=== PATIENT | female | born 1995 | race Caucasian/White ===

== ENCOUNTER 2019-05-18 12:17 | Emergency (ER) | payer BC, SELFPAY ==
[2019-05-18 12:33] VITALS: BP 122/78; PULSE 80; RESP 18; TEMP 36.2; O2SAT 100
--- NOTE | 2019-05-18 14:16 | ED.GENADULT ---
HPI - General Adult General Chief complaint: Unspecified Stated complaint: PERSISTENT RASH, KEVIN, ARM PAIN Time Seen by Provider: 05/18/19 13:56 Source: patient and RN notes reviewed Mode of arrival: ambulatory Limitations: no limitations History of Present Illness HPI narrative: Pt is a 23 y/o female presenting to the ED c/o BUE pain. Pt reports she started experiencing BUE pain that starts on her bilateral shoulders and radiates down the arms a week ago. Pt states the pain has been intermittent, noting her Sx's last about a minute in duration before resolving. Pt also reports neck pain, frontal KEVIN, nausea, diarrhea, ABD cramping, decreased PO intake of food due to diarrhea, and rash for 2 weeks, but denies vomiting, rhinorrhea, congestion, fever, visual changes, or CP. Pt states her rash on her chest and LUE has gradually worsened and notes she has been seen by her PCP for it. Pt states she had blood work drawn last Saturday and notes she has been prescribed steroids as well as a cream but has been told not to take it until she gets her blood work back. Pt states her son currently has Imepetigo and has been using the cream he was prescribed on herself to no relief on her Sx's. Onset (ago): week(s) (1) Location: upper extremity (Bilateral) Radiation: other (Down bilateral arm) Associated symptoms: headaches (Frontal), nausea/vomiting (Nausea, no vomiting), rash (Chest and LUE) and other (Neck pain; ABD pain; diarrhea; decreased PO intake of food due to diarrhea) Related Data Home Medications Medication Instructions Recorded Confirmed esomeprazole magnesium mg 05/18/19 levothyroxine 05/18/19 norethindrone-e.estradiol-iron [Lo tablet 05/18/19 Loestrin Fe] Allergies Allergy/AdvReac Type Severity Reaction Status Date / Time Penicillins Allergy Unknown Vomiting Verified 05/18/19 13:45 Review of Systems Review of Systems: All systems reviewed & are unremarkable except as noted in HPI and below Constitutional: Constitutional: Reports fever(s) and Reports other (Decreased PO intake of food due to diarrhea) Eyes: Eyes: Denies change in vision ENT: Denies nasal congestion and Denies other (Rhinorrhea) Cardiovascular: Cardiovascular: Denies chest pain Gastrointestinal: Gastrointestinal: Reports abdominal pain, Reports diarrhea, Reports nausea and Denies vomiting Musculoskeletal: Musculoskeletal: Reports neck pain and Reports other (Bilateral shoulder pain radiating down arms) Integumentary/Breasts: Skin/Breast: Reports rash (chest and LUE) Neurologic: Reports headache(s) (Frontal) PMFSH Past Medical History Medical History Acid reflux Depression Thyroid disease Surgical History Surgical History History of tonsillectomy Family History Family History Grandparent Family history of congestive heart failure Social History Social History Social History: Smoking status: Light tobacco smoker Tobacco type: cigarettes Second hand tobacco smoke exposure: Yes Alcohol intake: never Substance use: never Substance use type: does not use Gender identity (if verbalized by the patient): Female Exam Narrative: Exam Narrative: GENERAL: Well-appearing, well-nourished, and in no acute distress. HEAD: Normocephalic, atraumatic EYES: PERRLA and EOMI, conjunctiva clear without discharge EARS: TM's clear bilaterally without erythema or dullness NOSE: Nares clear, no rhinorrhea or epistaxis THROAT:Mucous membranes moist, Oropharynx normal without erythema, exudate, peritonsillar swelling or fluctuance NECK: Supple, without lymphadenopathy or mass RESPIRATORY: No respiratory distress, Airway patent, Respirations non-labored, Clear to auscultation without rales, rhonchi or wheeze HEART: Regular rate and rhythm. No murmur hear
[2019-05-18] MEDS: LACTATED RINGERS 1,000 ML 999 ML IV CONT (14:41)
[2019-05-18] MEDS: METOCLOPRAMIDE HCL INJ 10 MG/2 ML VIAL IV PUSH (14:41)
[2019-05-18 15:15] LABS: Basophils Absolute Auto 0.1 K/mm3 (0.0-0.1); Basophils Percent Auto 0.9 % (0.2-1.2); Eosinophils Absolute Auto 0.2 K/mm3 (0-0.3); Eosinophils Percent Auto 3.4 % (0-4.4); Hematocrit 31.8 % (37.0-47.0); Hemoglobin 9.9 g/dL (12.0-15.0); Immature Granulocyte Absolute 0.01 K/mm3 (0.00-0.031); Immature Granulocyte Percent A 0.2 % (0-0.5); Lymphocytes Percent Auto 42.5 % (18.3-44.2); Mean Corpuscular HGB Conc 31.1 g/dl (32-36); Mean Corpuscular Hemoglobin 24.9 pg (26-34); Mean Corpuscular Volume 79.9 fl (80-100); Mean Platelet Volume 11.1 fl (7.4-10.4); Monocytes Absolute Auto 0.3 K/mm3 (0.1-0.6); Monocytes Percent Auto 4.9 % (2.6-8.5); Neutrophils Absolute Auto 2.8 K/mm3 (1.3-6.7); Neutrophils Percent Auto 48.1 % (45.5-73.1); Platelet Count Result 249 k/mm3 (150-375); Red Blood Count 3.98 M/mm3 (4.2-5.4); Red Cell Distribution Width 16.4 % (11.5-14.5); White Blood Count 5.9 K/mm3 (4.5-10.0)
[2019-05-18 15:24] LABS: Prothrombin Time 12.6 Seconds (11.1-14.7)
[2019-05-18 15:25] LABS: Partial Thromboplastin Time 29.6 SECONDS (22.3-36.8)
[2019-05-18 15:26] LABS: Creatine Kinase 61 U/L (30-135)
[2019-05-18 15:28] LABS: Alanine Aminotransferase 22 U/L (4-35); Albumin Level 3.8 g/dL (3.5-5.1); Alkaline Phosphatase 78 U/L (38-126); Aspartate Amino Transferase 25 U/L (14-36); Bilirubin,Total < 0.1 mg/dL (0.2-1.3); Blood Urea Nitrogen 11 mg/dL (7-17); Calcium 8.6 mg/dL (8.4-10.2); Carbon Dioxide 24 mmol/L (22-30); Chloride 103 mmol/L (98-107); Estimated CRCL calculation 138 ml/min; Estimated Glomerular Filt Rate > 60; Glucose 106 mg/dL (65-105); Magnesium 1.9 mg/dL (1.6-2.3); Potassium 3.7 mmol/L (3.4-5.0); Sodium 141 mmol/L (137-145)
--- NOTE | 2019-05-18 16:35 | ECG_ITS ---
Measurements Intervals [place] Rate: 47 P: 7 NE: 134 QRS: 18 QRSD: 93 T: 25 QT: 431 QTc: 385 Interpretive Statements SINUS BRADYCARDIA ABNORMAL ECG Electronically Signed On 05-18-2019 17:55:36 LEAD PERFORMANCE SUPPORT ANALYST by Juve James D.O.
[2019-05-18 17:00] VITALS: RESP 16
== END 2019-05-18 17:08 | disposition home or self-care (01) ==
PROVIDERS: Emergency Provider General Practice; PCP Family Medicine
DX: G44.209 Tension-type headache, unspecified, not intractable (principal); R00.1 Bradycardia, unspecified; F17.210 Nicotine dependence, cigarettes, uncomplicated; F32.9 Major depressive disorder, single episode, unspecified
CPT/HCPCS: 36415; 80053; 81025; 82550; 83735; 85025; 85610; 85730; 93005; 96361; 96374; 96375; 99284; J1200; J2765; J7120

== ENCOUNTER 2023-10-15 09:44 | Outpatient (CLI) | payer OTHER, SELFPAY ==
[2023-10-15 10:19] LABS: Basophils Absolute Auto 0.1 K/mm3 (0.0-0.1); Basophils Percent Auto 0.8 % (0.2-1.2); Eosinophils Absolute Auto 0.1 K/mm3 (0-0.3); Hematocrit 36.8 % (37.0-47.0); Hemoglobin 11.7 g/dL (12.0-15.0); Immature Granulocyte Absolute 0.01 K/mm3 (0.00-0.031); Immature Granulocyte Percent A 0.2 % (0-0.5); Lymphocytes Absolute Auto 2.25 K/mm3 (0.9-3.2); Lymphocytes Percent Auto 35.2 % (18.3-44.2); Mean Corpuscular HGB Conc 31.8 g/dl (32-36); Mean Corpuscular Hemoglobin 26.1 pg (26-34); Mean Corpuscular Volume 82.1 fl (80-100); Mean Platelet Volume 10.3 fl (7.4-10.4); Monocytes Absolute Auto 0.4 K/mm3 (0.1-0.6); Monocytes Percent Auto 5.5 % (2.6-8.5); Neutrophils Absolute Auto 3.6 K/mm3 (1.3-6.7); Neutrophils Percent Auto 56.3 % (45.5-73.1); Platelet Count Result 293 k/mm3 (150-375); Red Blood Count 4.48 M/mm3 (4.2-5.4); Red Cell Distribution Width 18.6 % (11.5-14.5); White Blood Count 6.4 K/mm3 (4.5-10.0)
[2023-10-15 10:52] LABS: Erythrocyte Sedimentation Rate 18 mm/hr (0-20)
[2023-10-15 10:53] LABS: Hemoglobin A1C 5.4 % (<5.7)
[2023-10-15 10:56] LABS: Alanine Aminotransferase 22 U/L (6-35); Albumin Level 4.9 g/dL (3.5-5.1); Alkaline Phosphatase 63 U/L (38-126); Anion Gap 9 mmol/L (4-12); Aspartate Amino Transferase 31 U/L (14-36); Bilirubin,Total 0.6 mg/dL (0.2-1.3); Blood Urea Nitrogen 15 mg/dL (7-17); CRP < 0.5 mg/dL (<1.0); Calcium 9.3 mg/dL (8.4-10.2); Carbon Dioxide 22 mmol/L (22-30); Chloride 105 mmol/L (98-107); Cholesterol 325 mg/dL (0-200); Estimated Glomerular Filt Rate > 60; Glucose 92 mg/dL (65-110); HDL Direct 60 mg/dL; Potassium 4.6 mmol/L (3.4-5.0); Sodium 136 mmol/L (137-145); Triglycerides 151 mg/dL (<150)
[2023-10-15 11:05] LABS: LDL Cholesterol Direct 207 mg/dL
== END 2023-10-15 09:45 | disposition home or self-care (01) ==
LOC: ANHLAB 09:49
PROVIDERS: PCP Family Medicine; Visit Provider Family Medicine
DX: R53.82 Chronic fatigue, unspecified (principal); I10 Essential (primary) hypertension; R73.09 Other abnormal glucose; E78.2 Mixed hyperlipidemia
CPT/HCPCS: 36415; 80053; 80061; 83036; 84443; 85025; 85652; 86140

== ENCOUNTER 2023-10-22 13:01 | Emergency (ER) | payer OTHER, SELFPAY ==
--- NOTE | ~2023-10-22 | XR_ITS ---
XR chest 1V portable Ordering provider: Darin Dillon PA-C History: 28 years Female with . near syncope . Comparison: None. FINDINGS: MEDIASTINUM: The cardiac silhouette is not enlarged. LUNGS: No infiltrates, effusions or pneumothorax. OTHER: No free air under the diaphragm. IMPRESSION: No acute cardiopulmonary pathology. Reviewed, dictated and finalized at location A.
[2023-10-22 13:15] VITALS: BP 139/87; PULSE 77; RESP 16; TEMP 36.2; O2SAT 100
[2023-10-22 15:22] VITALS: BP 124/71; PULSE 59
[2023-10-22 15:24] VITALS: BP 126/80; PULSE 60
[2023-10-22 15:25] VITALS: BP 128/79; PULSE 66
--- NOTE | 2023-10-22 15:39 | ED.DIZZY ---
HPI - Dizziness General Chief Complaint: Dizziness Stated Complaint: h/a, dizzy, sob Time Seen by Provider: 10/22/23 15:21 Source: patient Mode of arrival: ambulatory Limitations: no limitations History of Present Illness HPI Narrative: this is a 28-year-old female With PMH of anemia, thyroid disease who presents to the ED with chief complaint of dizziness, lightheadedness intermittent for the past couple weeks. Endorses intermittent nausea as well but no vomiting. States that she was seen by her PCP recently for similar symptoms. They noted that her blood pressure was high. states that she was started on furosemide a few days ago. reports today she was a little more concerned because she has been having some shortness of breath. she did have a headache that has since resolved. States the symptoms are made worse with certain positions and with standing up or sitting down rapidly. denies numbness, weakness, syncope, speech change, vision change. Does endorse history of blood clot in the past but does not currently take any blood thinners Related Data Allergies Allergy/AdvReac Type Severity Reaction Status Date / Time Penicillins Allergy Unknown Vomiting Verified 10/22/23 15:49 Review of Systems Review of Systems: All systems as dictated in HPI [facility] Past Medical History Medical History Acid reflux Acute bronchitis Cervical smear, as part of routine gynecological examination Depression Dizziness Hypothyroidism (acquired) Hypovitaminosis D Infected incision Infectious diarrhea in adult patient Pruritic urticarial papules and plaques of , antepartum Thyroid disease Vaginal delivery Vaginal discharge Vulvovaginal discomfort Withdrawal complaint Surgical History Surgical History H/O breast augmentation History of elective History of tonsillectomy Family History Family History Grandparent Family history of congestive heart failure Social History Social History (Updated 10/15/23 @ 08:30 by Roberta Angelo) Social History: Smoking packs per day: 0.5 Smoking cigarettes per day: 10.0 Years smoked: 5 Smoking pack-years: 2.50 Smoking status: Current every day smoker Tobacco type: cigarettes Second hand tobacco smoke exposure: Yes Alcohol intake: current Alcohol use details: Occasionally Substance use: never Substance use type: does not use Do You Feel Safe in your Home?: Yes Lack of Transportation: No Lack of Food: Never True Current Housing: I Have Housing Concerned About Future Housing: No Difficulty Paying Gas/Electric Bills: No Difficulty Paying for Meds: No Currently Unemployed: No Education: Decline to Answer Difficulty w/ Childcare or Family Care: No Living arrangements: with family Occupation/Education: occupation 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 Gender identity (if verbalized by the patient): Female Sexual Orientation (if Verbalized by the Patient): Straight or Heterosexual Exam Narrative: GENERAL: Well-appearing, well-nourished, and in no acute distress. HEAD: Normocephalic, atraumatic. EYES: PERRLA and EOMI. ENT: Nares clear, no rhinorrhea or epistaxis. Mucous membranes moist. Oropharynx without tonsillar hypertrophy exudate or other lesions. NECK: Supple. No adenopathy or masses. CHEST: No respiratory distress. Clear to auscultation. No wheezes rales or rhonchi HEART: Regular rate and rhythm. No murmur heard. Normal peripheral pulses. ABDOMEN: Soft, nontender, nondistended, normal active bowel sounds. MSK: Normal range of motion. No edema. SKIN: Warm, dry, no rash. NEURO: Alert and oriented x4. No focal deficits. no nystagmus. PSYCH: Normal mood and affect. Course Vital Signs Vital signs: Vital Signs
[2023-10-22 15:45] VITALS: BP 132/87; PULSE 56; RESP 15; O2SAT 100
--- NOTE | 2023-10-22 15:47 | ECG_ITS ---
Test Date: 2023-10-22 15:56:08 Measurements Intervals [place] Rate: 51 P: 2 DC: 141 QRS: 7 QRSD: 94 T: 15 QT: 404 QTc: 372 Interpretive Statements SINUS BRADYCARDIA VOLTAGE CRITERIA FOR LVH BASELINE ARTIFACT- AVR, AVL, AVF BORDERLINE ECG No previous ECG available for comparison Electronically Signed On 10-22-2023 16:00:01 CDT by Juve James D.O.
[2023-10-22] MEDS: SODIUM CHLORIDE 0.9% IV 1,000 ML 999 ML IV CONT (16:10)
[2023-10-22] MEDS: MECLIZINE HCL 25 MG TABLET PO (16:11)
[2023-10-22] MEDS: ONDANSETRON INJ 4 MG/2 ML VIAL IV PUSH (16:11)
[2023-10-22 16:20] LABS: Basophils Absolute Auto 0.1 K/mm3 (0.0-0.1); Basophils Percent Auto 0.7 % (0.2-1.2); Eosinophils Absolute Auto 0.1 K/mm3 (0-0.3); Eosinophils Percent Auto 1.4 % (0-4.4); Hematocrit 34.7 % (37.0-47.0); Immature Granulocyte Absolute 0.03 K/mm3 (0.00-0.031); Immature Granulocyte Percent A 0.3 % (0-0.5); Lymphocytes Absolute Auto 2.99 K/mm3 (0.9-3.2); Lymphocytes Percent Auto 34.6 % (18.3-44.2); Mean Corpuscular HGB Conc 31.7 g/dl (32-36); Mean Corpuscular Hemoglobin 26.2 pg (26-34); Mean Corpuscular Volume 82.6 fl (80-100); Mean Platelet Volume 10.1 fl (7.4-10.4); Monocytes Absolute Auto 0.3 K/mm3 (0.1-0.6); Monocytes Percent Auto 3.9 % (2.6-8.5); Neutrophils Absolute Auto 5.1 K/mm3 (1.3-6.7); Neutrophils Percent Auto 59.1 % (45.5-73.1); Platelet Count Result 308 k/mm3 (150-375); Red Cell Distribution Width 19.1 % (11.5-14.5); White Blood Count 8.7 K/mm3 (4.5-10.0)
[2023-10-22 16:23] LABS: Appearance Urine Clear (Clear); Bilirubin Urine Negative (Negative); Blood Urine Negative (Negative); Color Urine Yellow (Yellow); Glucose Urine UA Negative (Negative); Ketones Urine Trace mg/dL (Negative); Leukocyte Esterase Ur Negative LEU/UL (Negative); Nitrate Urine Negative (Negative); Protein Urine Negative (Negative); Urobilinogen Urine 0.2 mg/dL (<2.0); pH Urine 5.5 (5.0-9.0)
[2023-10-22 16:27] LABS: Add Urine Microscopic? NO
[2023-10-22 16:32] LABS: Alanine Aminotransferase 17 U/L (6-35); Albumin Level 4.6 g/dL (3.5-5.1); Alkaline Phosphatase 70 U/L (38-126); Anion Gap 10 mmol/L (4-12); Aspartate Amino Transferase 25 U/L (14-36); Bilirubin,Total 0.2 mg/dL (0.2-1.3); Blood Urea Nitrogen 10 mg/dL (7-17); Calcium 9.2 mg/dL (8.4-10.2); Carbon Dioxide 25 mmol/L (22-30); Chloride 102 mmol/L (98-107); Estimated CRCL calculation 148 ml/min; Estimated Glomerular Filt Rate > 60; Glucose 86 mg/dL (65-110); Potassium 3.7 mmol/L (3.4-5.0); Sodium 137 mmol/L (137-145)
[2023-10-22 16:44] LABS: NT Pro B Type Natriuretic Pept < 20 pg/mL (19.9-100); Troponin I < 0.012 ng/mL (0.000-0.034)
[2023-10-22 16:47] LABS: D Dimer < 0.27 ug/mL (<0.48)
== END 2023-10-22 17:45 | disposition home or self-care (01) ==
PROVIDERS: Emergency Provider Physician Assistant; PCP Family Medicine
DX: R42 Dizziness and giddiness (principal); R00.1 Bradycardia, unspecified; F17.210 Nicotine dependence, cigarettes, uncomplicated; F32.A Depression, unspecified; E03.9 Hypothyroidism, unspecified
CPT/HCPCS: 36415; 71045; 80053; 81003; 81025; 83880; 84484; 85025; 85380; 93005; 96361; 96374; 99284; A9270; J2405; J7030

== ENCOUNTER 2023-11-19 08:30 | Outpatient (CLI) | payer OTHER, SELFPAY ==
--- NOTE | ~2023-11-19 | CT_ITS ---
CT brain & sinus wo con Ordering provider: Hannah Todd MD History: 28 years Female with . R42 - Dizziness and giddiness . Comparison: None. Technique: CT of the head without contrast. Radiation reduction technique utilized. DLP is 3. The dose-length product was 756.67 mGy-cm FINDINGS: BRAIN PARENCHYMA AND CSF SPACES: No midline shift, mass effect or hemorrhage. The brain parenchyma a nd CSF spaces are otherwise normal. BONES: The bones appear intact. SOFT TISSUES: Visualized nasopharynx is normal. Superficial soft tissues are normal. IMPRESSION: No acute intracranial findings. CT brain & sinus wo con Ordering provider: Hannah Todd MD History: . R42 - Dizziness and giddiness . Comparison: None. Technique: Thin slice Scans CT of the paranasal sinuses was performed with coronal and sagittal refor matted images. No IV contrast. . Automated exposure control and iterative reconstruction technique w ere employed. The dose-length product was 756.67 mGy-cm. Findings: NASAL SEPTUM: midline. OSTEOMEATAL UNITS: Bilaterally patent. NASAL TURBINATES AND NASOPHARYNX: Normal. PARANASAL SINUSES: Well aerated. VISUALIZED MASTOIDS: Normal as visualized. BONES: Normal. SUPERFICIAL SOFT TISSUES/VISUALIZED BRAIN PARENCHYMA: Normal. IMPRESSION: No acute abnormality seen. Reviewed, dictated and finalized at location A. IMPRESSION: No acute intracranial findings. CT brain & sinus wo con Ordering provider: Hannah Todd MD History: . R42 - Dizziness and giddiness . Comparison: None. Technique: Thin slice Scans CT of the paranasal sinuses was performed with alex nal and sagittal reformatted images. No IV contrast. . Automated exposure cont rol and iterative reconstruction technique were employed. The dose-length produ ct was 756.67 mGy-cm. Findings: NASAL SEPTUM: midline. OSTEOMEATAL UNITS: Bilaterally patent. NASAL TURBINATES AND NASOPHARYNX: Normal. PARANASAL SINUSES: Well aerated. VISUALIZED MASTOIDS: Normal as visualized. BONES: Normal. SUPERFICIAL SOFT TISSUES/VISUALIZED BRAIN PARENCHYMA: Normal. IMPRESSION: No acute abnormality seen.
== END 2023-11-19 08:31 | disposition home or self-care (01) ==
LOC: ANHIMG 08:33
PROVIDERS: PCP Family Medicine; Visit Provider Family Medicine
DX: I49.9 Cardiac arrhythmia, unspecified (principal); R42 Dizziness and giddiness; R51.9 Headache, unspecified
CPT/HCPCS: 70450; 70486

== ENCOUNTER 2023-12-04 09:58 | Outpatient (CLI) | payer OTHER, SELFPAY ==
--- NOTE | 2023-12-09 11:23 | WPDHOLTEREM ---
Holter/Event Monitor Holter/Event Monitor Date of procedure: 12/04/23 Holter/Event Procedure: 48 Hr Holter Monitor Indications: Cardiac arrhythmia Conclusion: 1. 48 hour holter monitor on 12/04/23. 2. Underlying rhythm is sinus rhythm. HR range 43-158 bpm; average HR 76 bpm. HR rate 43 bpm at 05:20. HR at 158 bpm at 13:14. 3. No premature supraventricular complexes. No supraventricular tachycardia. 4. No premature ventricular complexes. No ventricular tachycardia. 5. No sinoatrial or atrioventricular blocks. No significant pauses greater than 2 seconds. 6. Patient reports symptoms of shortness of breath, dizziness, lightheadedness, fluttering which demonstrate sinus rhythm, HR range 57-88 bpm.
== END 2023-12-04 09:59 | disposition home or self-care (01) ==
PROVIDERS: PCP Family Medicine; Visit Provider Family Medicine
DX: I49.9 Cardiac arrhythmia, unspecified (principal); R42 Dizziness and giddiness
CPT/HCPCS: 93225; 93226

== ENCOUNTER 2023-12-16 02:04 | Day surgery (SDC) | payer OTHER, SELFPAY ==
[2023-11-29 08:56] VITALS: BMI 30.7
[2023-12-16 10:39] VITALS: BP 122/82; PULSE 64; RESP 18; TEMP 36.2; O2SAT 100; BMI 30.1
--- NOTE | 2023-12-16 10:49 | WPDANESEPPF ---
Anes - Initial Pre Proc Eval Procedure: Operation Date: 12/16/23 11:30 Proposed Procedures p Esophagogastroduodenoscopy - Americo Davis MD Date/Time: 12/16/23 10:49 Surgeon: Americo Davis MD Pre Op Diagnosis: epigastric pain, nausea Patient Data Age: 28 Gender: F Height: 1.8 m Weight: 98 kg Last Vital Signs Temp 97.1 F L 12/16/23 10:39 Pulse 64 12/16/23 10:39 Resp 18 12/16/23 10:39 BP 122/82 12/16/23 10:39 Pulse Ox 100 12/16/23 10:39 O2 Del Method Room Air 12/16/23 10:39 Allergies Allergy/AdvReac Type Severity Reaction Status Date / Time Penicillins AdvReac Unknown Vomiting Verified 12/16/23 10:36 Home Medications Medication Instructions Recorded Confirmed Type butalbital 50 mg-acetaminophen 325 1 tablet PO Q6H PRN pain #20 tabs 11/12/23 12/16/23 Rx mg tablet cetirizine 10 mg tablet (Zyrtec) 10 mg PO DAILY 11/29/23 12/16/23 History pantoprazole 40 mg tablet,delayed 40 mg PO DAILY 11/29/23 12/16/23 History release Patient hx anesthesia problems: none Family hx anesthesia problems: none Results Review: All pre-operative results and documents have been reviewed as part of the pre-operative evaluation. [facility] Past Medical History Medical History Acid reflux Acute bronchitis Cervical smear, as part of routine gynecological examination Depression Dizziness Hypothyroidism (acquired) Hypovitaminosis D Infected incision Infectious diarrhea in adult patient Pruritic urticarial papules and plaques of , antepartum Thyroid disease Vaginal delivery Vaginal discharge Vulvovaginal discomfort Withdrawal complaint Surgical History Surgical History H/O breast augmentation History of elective History of tonsillectomy Family History Family History Grandparent Family history of congestive heart failure Social History Social History (Reviewed 12/16/23 @ 10:49 by KHANH Noble Social History: Smoking packs per day: 1 Smoking cigarettes per day: 20.0 Years smoked: 9 Smoking pack-years: 9.00 Smoking status: Current every day smoker Tobacco type: cigarettes Second hand tobacco smoke exposure: Yes Alcohol intake: current Alcohol use details: a few per month Substance use: never Substance use type: does not use Do You Feel Safe in your Home?: Yes Lack of Transportation: No Lack of Food: Never True Current Housing: I Have Housing Concerned About Future Housing: No Difficulty Paying Gas/Electric Bills: No Difficulty Paying for Meds: No Currently Unemployed: No Education: Decline to Answer Difficulty w/ Childcare or Family Care: No Living arrangements: with family Occupation/Education: occupation 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 Gender identity (if verbalized by the patient): Female Sexual Orientation (if Verbalized by the Patient): Straight or Heterosexual Spiritual care concerns: No Anes - Eval Final PreProcedure Day of Procedure 12/16/23 10:49 Patient weight: obese Heart: regular rate and rhythm Lungs: clear to auscultation Airway: Mallampati scale class II Neurological: alert and oriented Last oral intake: >/= 8 hours ASA classification: II Emergent: no Anesthetic plan: proceed Anesthesia type and monitoring: general GIVS and standard monitoring Results Review: All pre-operative results and documents have been reviewed as part of the pre-operative evaluation. HTN, hyperlipidemia, smoker, 1/2 ppd and did smoke at 7 am today. Informed Consent: The patient's anesthetic plan and its attendant risks and benefits were discussed with the patient/family/POA. Questions were solicited and answers provided to the satisfaction of the patient/fam
[2023-12-16] MEDS: LACTATED RINGERS 1,000 ML 150 ML IV CONT (10:59)
--- NOTE | 2023-12-16 11:30 | PM.HPGS ---
History of Present Illness History of Present Illness Consent: Risks, benefits, and alternatives have been discussed and questions answered. Patient agrees to proceed with procedure. Chief complaint: epigastric pain, nausea Narrative: Kylie Cole is a 28 year old female with gerd on ppi, if she skips a dose then will get more symptomatic, also nausea. Never had egd Review of Systems Review of Systems: All systems reviewed & are unremarkable except as noted in HPI and below PMFSH Past Medical History Medical History Acid reflux Acute bronchitis Cervical smear, as part of routine gynecological examination Depression Dizziness Hypothyroidism (acquired) Hypovitaminosis D Infected incision Infectious diarrhea in adult patient Pruritic urticarial papules and plaques of , antepartum Thyroid disease Vaginal delivery Vaginal discharge Vulvovaginal discomfort Withdrawal complaint Surgical History Surgical History H/O breast augmentation History of elective History of tonsillectomy Family History Family History Grandparent Family history of congestive heart failure Social History Social History Social History: Smoking packs per day: 1 Smoking cigarettes per day: 20.0 Years smoked: 9 Smoking pack-years: 9.00 Smoking status: Current every day smoker Tobacco type: cigarettes Second hand tobacco smoke exposure: Yes Alcohol intake: current Alcohol use details: a few per month Substance use: never Substance use type: does not use Do You Feel Safe in your Home?: Yes Lack of Transportation: No Lack of Food: Never True Current Housing: I Have Housing Concerned About Future Housing: No Difficulty Paying Gas/Electric Bills: No Difficulty Paying for Meds: No Currently Unemployed: No Education: Decline to Answer Difficulty w/ Childcare or Family Care: No Living arrangements: with family Occupation/Education: occupation 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 Gender identity (if verbalized by the patient): Female Sexual Orientation (if Verbalized by the Patient): Straight or Heterosexual Spiritual care concerns: No Meds Home Medications and Allergies Home Medications Medication Instructions Recorded Confirmed Type butalbital 50 mg-acetaminophen 325 1 tablet PO Q6H PRN pain #20 tabs 11/12/23 12/16/23 Rx mg tablet cetirizine 10 mg tablet (Zyrtec) 10 mg PO DAILY 11/29/23 12/16/23 History pantoprazole 40 mg tablet,delayed 40 mg PO DAILY 11/29/23 12/16/23 History release Allergies Allergy/AdvReac Type Severity Reaction Status Date / Time Penicillins AdvReac Unknown Vomiting Verified 12/16/23 10:36 Vital Signs Vital Signs - 24 hr 12/16/23 10:39 Temperature 97.1 F L Pulse Rate 64 Respiratory Rate 18 Blood Pressure 122/82 Pulse Oximetry 100 Oxygen Delivery Room Air Exam Const: General: comfortable and no acute distress HENMT: Face/Nose/Sinus: Normal nares present Eyes: General: appearance normal, both eyes and all related structures Neck: Neck: no JVD Resp: Auscultation: clear to auscultation bilaterally Cardio: Rate: regular rate Rhythm: regular rhythm GI: Inspection: non-distended GI Palp: Yes Soft to palpation Skin: General skin exam: normal color Neuro: General: gait normal Speech: normal speech Extrem: General: normal to inspection Psych: Mental Status: mental status grossly normal Assessment and Plan Assessment and plan (1) Epigastric abdominal pain: Code(s): R10.13 - Epigastric pain Status: Acute Assessment and Plan: egd with bx (2) Nausea: Code(s): R11.0 - Nausea Status: Acute
[2023-12-16 11:44] VITALS: BP 127/74; PULSE 58; RESP 23; O2SAT 100
[2023-12-16 11:54] VITALS: BP 130/85; PULSE 56; RESP 18; O2SAT 100
[2023-12-16 12:04] VITALS: BP 117/65; PULSE 55; RESP 17; O2SAT 100
[2023-12-16 13:58] LABS: BEDSIDEPREGUCG Negative (Negative)
== END 2023-12-16 12:11 | disposition home or self-care (01) ==
PROVIDERS: PCP Family Medicine; Visit Provider Internal Medicine Gastroenterology
PROC: 0DJ08ZZ Inspection of Upper Intestinal Tract, Via Natural or Artificial Opening Endoscopic (ICD-10-PCS; CPT 43235; principal; 2023-12-16 11:30)
DX: R10.13 Epigastric pain (principal); K21.9 Gastro-esophageal reflux disease without esophagitis; E03.9 Hypothyroidism, unspecified; F17.210 Nicotine dependence, cigarettes, uncomplicated
CPT/HCPCS: 43239; 88305; J2704; J7120